=== PATIENT | female | born 1960 | race Caucasian/White ===

== ENCOUNTER 2017-07-18 08:19 | Observation (INO) | payer OTHER ==
[2017-07-18] VITALS (12 sets, daily range): BP systolic 64–155; BP diastolic 44–90; PULSE 50–112; RESP 16–20; TEMP 98.3–98.7; O2SAT 99–100
[2017-07-18] MEDS ORDERED: SYNT88TA PO (08:57)
[2017-07-18] MEDS ORDERED: ALPR.25 PO (08:57)
[2017-07-18] MEDS ORDERED: CHOL100025 CHEW (08:58)
[2017-07-18] MEDS ORDERED: CALC600T4 PO (08:58)
[2017-07-18] MEDS ORDERED: PRIL20TA2 (08:58)
[2017-07-18] MEDS ORDERED: SACC1CAP3 PO (08:58)
--- NOTE | 2017-07-18 08:59 | PD ---
HPI Chief Complaint: Continuous Pillowcase Cutter Problem/Complaint Time Seen by Provider: 08:35 Travel History International Travel<30 days: No Contact w/Intl Traveler<30days: No Traveled to known affect area: No History of Present Illness HPI Per patient she had a LEEP procedure approximately 2 weeks ago. Last week she had very light spotting that occurred. However, as of 3 in the morning today she had a larger bright red vaginal bleeding episode in which she filled 1 pad. Patient has not had any repeated episodes however she fears that if she moves about she may develop more bleeding, because that is what she has noticed in the past. Per patient she was verbally told that the LEEP was negative. Patient currently denies any lightheadedness, dizziness, shortness of breath, abdominal or pelvic pain. PCP is Dr. Carias CURRICULUM DEVELOPMENT MANAGER is Dr. Jose Armando HAMILTON Past Medical History GERD: Yes Thyroid Disease: Yes ?: Not Past Surgical History Gynecologic Surgery: Yes (leap procedure) Social History Alcohol Use: No Tobacco Use: No Substance Use: No Allergies-Medications (Allergen,Severity, Reaction): Coded Allergies: Penicillins (Verified Allergy, Severe, Hives, 07/18/17) clarithromycin (Verified Allergy, Severe, Nausea/Vomiting, 07/18/17) erythromycin base (Verified Allergy, Severe, Nausea/Vomiting, 07/18/17) Reported Meds & Prescriptions Reported Meds & Active Scripts Active Reported Prilosec (Omeprazole Magnesium) 20 Mg Tab Calcium Carbonate 1,500 Mg Tab 1,500 Mg PO DAILY 1,500 mg calcium carbonate (600 mg elemental calcium) Vitamin D3 (Cholecalciferol) 1,000 Unit Chew 1,000 Units CHEW DAILY Probiotic (Saccharomyces Boulardii) 250 Mg Cap 250 Mg PO BID Xanax (Alprazolam) 0.25 Mg Tab 0.25 Mg PO Q8H PRN Synthroid (Levothyroxine Sodium) 88 Mcg Tab 88 Mcg PO DAILY Review of Systems Except as stated in HPI: all other systems reviewed are Neg General / Constitutional: No: Fever Eyes: No: Visual changes HENT: No: Headaches Cardiovascular: No: Chest Pain or Discomfort Respiratory: No: Shortness of Breath Gastrointestinal: No: Abdominal Pain Genitourinary: Positive: Vaginal Bleeding Musculoskeletal: No: Pain Skin: No Rash Neurologic: No: Weakness Psychiatric: No: Depression Endocrine: No: Polydipsia Hematologic/Lymphatic: No: Easy Bruising Physical Exam Narrative GENERAL: SKIN: Warm and dry. HEAD: Atraumatic. Normocephalic. EYES: Pupils equal and round. No scleral icterus. No injection or drainage. ENT: No nasal bleeding or discharge. Mucous membranes pink and moist. NECK: Trachea midline. No JVD. CARDIOVASCULAR: Regular rate and rhythm. RESPIRATORY: No accessory muscle use. Clear to auscultation. Breath sounds equal bilaterally. GASTROINTESTINAL: Abdomen soft, non-tender, nondistended. MUSCULOSKELETAL: Extremities without clubbing, cyanosis, or edema. No obvious deformities. NEUROLOGICAL: Awake and alert. No obvious cranial nerve deficits. Motor grossly within normal limits. Five out of 5 muscle strength in the arms and legs. Normal speech. PSYCHIATRIC: Appropriate mood and affect; insight and judgment normal. Data Data Last Documented VS Vital Signs Date Time Temp Pulse Resp B/P (MAP) Pulse Ox O2 Delivery O2 Flow Rate FiO2 07/18/17 10:00 102 20 131/67 (88) 100 Room Air 07/18/17 08:23 98.5 Orders Orders Complete Blood Count With Diff (07/18/17 09:00) Comprehensive Metabolic Panel (07/18/17 09:00) Prothrombin Time / Inr (Pt) (07/18/17 09:00) Act Partial Throm Time (Ptt) (07/18/17 09:00) Urinalysis - C+S If Indicated (07/18/17 09:00) Ct Abd/Pel W Iv Contrast(Rout) (07/18/17 09:00) Iv Access Insert/Monitor (07/18/17 09:00) Ecg Monitoring (07/18/17 09:00) Oximetry (07/18/17 09:00) NPO (07/18/17 09:00) Sodium Chlor 0.9% 1000 Ml Inj (Ns 1000 M (07/18/17 09:00) Sodium Chloride 0.9% Flush (Ns Flush) (07/18/17 09:00) Type And Screen (07/18/17 09:00) Iohexol 350 Inj (Omnipaque 350 Inj) (07/18/17 09:57) Urine Culture (07/18/17 10:10) Admit Order (Ed Use Only) (07/18/17 11:28) Labs Laboratory Tests Test 07/18/17 09:02 07/18/17 10:10 White Blood Count 5.8 TH/MM3 Red Blood Count 4.23 MIL/MM3 Hemoglobin 13.1 GM/DL Hematocrit 38.5 % Mean Corpuscular Volume 90.9 FL Mean Corpuscular Hemoglobin 31.0 PG Mean Corpuscular Hemoglobin Concent 34.1 % Red Cell Distribution Width 12.1 % Platelet Count 181 TH/MM3 Mean Platelet Volume 7.7 FL Neutrophils (%) (Auto) 77.2 % Lymphocytes (%) (Auto) 13.3 % Monocytes (%) (Auto) 8.9 % Eosinophils (%) (Auto) 0.4 % Basophils (%) (Auto) 0.2 % Neutrophils # (Auto) 4.4 TH/MM3 Lymphocytes # (Auto) 0.8 TH/MM3 Monocytes # (Auto) 0.5 TH/MM3 Eosinophils # (Auto) 0.0 TH/MM3 Basophils # (Auto) 0.0 TH/MM3 CBC Comment DIFF FINAL Differential Comment Prothrombin Time 10.2 SEC Prothromb Time International Ratio 1.0 RATIO Activated Partial Thromboplast Time 24.7 SEC Blood Urea Nitrogen 12 MG/DL Creatinine 0.89 MG/DL Random Glucose 98 MG/DL Total Protein 7.5 GM/DL Albumin 3.9 GM/DL Calcium Level 9.5 MG/DL Alkaline Phosphatase 61 U/L Aspartate Amino Transf (AST/SGOT) 16 U/L Alanine Aminotransferase (ALT/SGPT) 23 U/L Total Bilirubin 0.5 MG/DL Sodium Level 139 MEQ/L Potassium Level 4.0 MEQ/L Chloride Level 104 MEQ/L Carbon Dioxide Level 27.7 MEQ/L Anion Gap 7 MEQ/L Estimat Glomerular Filtration Rate 65 ML/MIN Urine Collection Type CLEAN CATCH Urine Color RED Urine Turbidity HAZY Urine pH 8.5 Urine Specific Lindsay 1.020 Urine Protein 100 mg/dL Urine Glucose (UA) NEG mg/dL Urine Ketones NEG mg/dL Urine Occult Blood LARGE Urine Nitrite NEG Urine Bilirubin NEGATIVE Urine Urobilinogen LESS THAN 2.0 MG/DL Urine Leukocyte Esterase TRACE Urine RBC /hpf Urine WBC 91 /hpf Microscopic Urinalysis Comment CULTURE INDICATED Urine Collection Time 1010 MDM Medical Decision Making Medical Screen Exam Complete: Yes Emergency Medical Condition: Yes Medical Record Reviewed: Yes Differential Diagnosis Complication of a LEEP procedure versus pelvic arterial bleeding versus uterine rupture Narrative Course On [address] back from the restroom (to obtain a urinalysis )accompanied by the nurse the patient had a near syncopal episode in which she started to feel very lightheaded and became diaphoretic she was lower down to the floor patient never lost consciousness never fell down never struck herself on the floor. Then she was placed back in her gurney. Repeat vitals reveal a heart rate in the 40s, and a systolic blood pressure in the 60s-70s, patient was given IV fluid bolus, while receiving the bolus the patient stated that she felt better, and heart rate was noted to increase always stated in a sinus rhythm. CBC shows no leukocytosis, no anemia, normal platelet count, and no left shift Coagulation profile is within normal limits Electrolytes are all within normal limits, normal kidney and liver functions. Patient's blood type is A+ UA appears to have been contaminated with some vaginal blood as it shows a urine color this red hazy turbidity has large blood present, 91 urine WBCs however this is with innumerable red blood cells noted, culture is indicated and they will allow the culture to dictate treatment currently I will not start patient on antibiotics. CT abdomen and pelvis read by radiologist as uterus and cervical region are abnormal in appearance with abnormal prominence and peripheral low-density as well as a central area of high density which is of unclear significance. Pelvic ultrasound recommended Physician Communication Physician Communication [facility] recommended ROOMING HOUSE INSPECTOR hospitalist to admit...... discussed the case with CURRICULUM DEVELOPMENT MANAGER Dr. Benson, who recommended a medicine admit to workup for syncope, as she does not believe that the postmenopausal bleeding without anemia is purely causing her syncope. Diagnosis Primary Impression: Postmenopausal vaginal bleeding Additional Impression: Syncope and collapse Admitting Information Admitting Physician Requests: Observation Bharat Emery MD July 18, 2017 08:59
[2017-07-18] MEDS ORDERED: SODIUM CHLORIDE 0.9% FLUSH 10 ML FLUSH IV FLUSH PRN (09:00)
[2017-07-18] MEDS ORDERED: SODIUM CHLOR 0.9% 1000 ML INJ 1,000 ML IV SCH (09:00)
[2017-07-18 09:21] LABS: AUTOMATED NEUTROPHIL # 4.4 TH/MM3 (1.8-7.7); BASOPHIL % 0.2 % (0.0-2.0); EOSINOPHIL % 0.4 % (0.0-4.0); HEMATOCRIT 38.5 % (35.0-46.0); HEMOGLOBIN 13.1 GM/DL (11.6-15.3); LYMPH % 13.3 % (9.0-44.0); LYMPHOCYTE # 0.8 TH/MM3 (1.0-4.8); MEAN CELL VOLUME 90.9 FL (80.0-100.0); MEAN CORPUSCULAR HGB CONC 34.1 % (32.0-36.0); MEAN PLATELET VOLUME 7.7 FL (7.0-11.0); MONO % 8.9 % (0.0-8.0); MONOCYTE # 0.5 TH/MM3 (0-0.9); NEUT % 77.2 % (16.0-70.0); PLATELET COUNT 181 TH/MM3 (150-450); RED BLOOD COUNT 4.23 MIL/MM3 (4.00-5.30); RED CELL DISTRIBUTION WIDTH 12.1 % (11.6-17.2); WHITE BLOOD COUNT 5.8 TH/MM3 (4.0-11.0)
[2017-07-18 09:40] LABS: ALBUMIN 3.9 GM/DL (3.4-5.0); AST (GOT) 16 U/L (15-37); BICARBONATE 27.7 MEQ/L (21.0-32.0); BLOOD UREA NITROGEN 12 MG/DL (7-18); CALCIUM 9.5 MG/DL (8.5-10.1); CHLORIDE 104 MEQ/L (98-107); CREATININE 0.89 MG/DL (0.50-1.00); GLOMERULAR FILTRATION RATE 65 ML/MIN (>89); GLUCOSE,RANDOM 98 MG/DL (74-106); PROTHROMBIN TIME - PATIENT 10.2 SEC (9.8-11.6); SODIUM (NA) 139 MEQ/L (136-145)
[2017-07-18 09:44] LABS: ALKALINE PHOSPHATASE 61 U/L (45-117); ALT (GPT) 23 U/L (10-53); TOTAL BILIRUBIN ADULT 0.5 MG/DL (0.2-1.0); TOTAL PROTEIN 7.5 GM/DL (6.4-8.2)
[2017-07-18] MEDS ORDERED: IOHEXOL 350 MG/ML 10 ML VIAL (for RAD DIAG) IVCONTRAST ONE (09:57)
--- NOTE | 2017-07-18 10:37 | RADRPT ---
EXAM DATE: 07/18/2017 9:55 AM EDT AGE/SEX: 57 years / Female INDICATIONS: Heavy vaginal bleeding since this morning CLINICAL DATA: This is the patient's initial encounter. Patient reports that signs and symptoms have been present for 1 day and indicates a pain score of 3/10. MEDICAL/SURGICAL HISTORY: Gastroesophageal reflux disease. . LEEP ORAL CONTRAST: No oral contrast ingested. RADIATION DOSE: 6.67 CTDI (mGy) COMPARISON: No prior [facility] exams available for comparison. TECHNIQUE: Multiple contiguous axial images were obtained through the abdomen and pelvis following b olus infusion of 95 ml Omnipaque 350 (iohexol) nonionic water-soluble contrast as a single exam dos e. No oral contrast ingested. Using automated exposure control and adjustment of the mA and/or kV ac cording to patient size, the radiation dose was kept as low as reasonably achievable to obtain optima l diagnostic quality images. FINDINGS: Lower Lungs: The visualized lower lungs are clear. Liver: The liver has a homogeneous density without space-occupying lesion. There is no dilation of th e biliary tree. Spleen: Homogeneous density without enlargement. Pancreas: Unremarkable without mass or calcification. Kidneys: Normal in size and shape. No evidence of solid mass or hydronephrosis. There are bilateral simple renal cysts. Adrenal Glands: Unremarkable. Aorta: The aorta and proximal iliac vessels are grossly unremarkable without aneurysmal dilation. Bowel/Mesentery: No oral contrast was given limiting the sensitivity. The bowel loops are grossly unr emarkable. The cecum and sigmoid colon have a normal configuration. Abdominal Wall: Intact. Retroperitoneum: No evidence of adenopathy in the retrocrural, para-aortic, or deep pelvic regions. Bladder: Contours are smooth. Reproductive Organs: The risks and cervical region are abnormal in appearance. The lower uterine seg ment and vaginal region are prominent of low density on the periphery. Centrally there is a 1.5 x 0.6 cm high density structure best seen on axial images numbers 66 through 69. Inguinal: The inguinal region is unremarkable without evidence of adenopathy. Bony Structures: Unremarkable. CONCLUSION: 1. The uterus and cervical region are abnormal in appearance with abnormal prominence and peripheral low density as well as a central area of high density which is of unclear significance. Pelvic ultra sound may be helpful for further evaluation. Electronically signed by: Thuan Marcos MD 07/18/2017 10:35 AM EDT
[2017-07-18 11:03] LABS: BILIRUBIN, URINE NEGATIVE (NEG); BLOOD, URINE LARGE (NEG); GLUCOSE,URINE NEG (NEG); KETONE, URINE NEG (NEG); PH, URINE 8.5 (5.0-8.5); URINE COLOR RED (YELLW/STRAW)
[2017-07-18 11:04] LABS: NITRITE,URINE NEG (NEG); URINE LEUKOCYTE ESTERASE TRACE (NEG)
[2017-07-18] MEDS ORDERED: ACETAMINOPHEN 325 MG TAB PO PRN (12:45)
[2017-07-18] MEDS ORDERED: ALPRAZolam 0.25 MG TAB PO PRN (12:45)
[2017-07-18] MEDS ORDERED: ONDANSETRON ODT 4 MG TAB PO PRN (12:45)
--- NOTE | 2017-07-18 14:46 | HHI.HP ---
HPI Service [facility] Hospitalists Primary Care Physician Maria Isabel Carias M.D. Admission Diagnosis PRESYNCOPE, POSTMENOPAUSAL BLEEDING Chief Complaint: Lightheadedness Travel History International Travel<30 Days: No Contact w/Intl Traveler <30 Da: No Traveled to Known Affected Are: No History of Present Illness Mrs. Porter is a pleasant 57 y/o WF with anxiety, hypothyroidism, and GERD. She reports that she had a LEEP procedure performed just over [address] Escobar. She states that initially she had some slight vaginal bleeding which resolved. She was informed that the pathology from her LEEP procedure was clear. Then yesterday evening she noted slight red blood. Around 0300 this morning she woke up to use the bathroom and she passed a large amount of bright red blood. She continued to pass large clots and called her NETWORK ENGINEER ADMINISTRATOR answering service and was prompted to go to the ED for further evaluation. While in the ED she got up to give a urine sample and upon standing she felt somewhat lightheaded and this worsened as she walked to the bathroom. She had some diaphoresis. She did not lose consciousness but felt like she might faint. She was helped back to the [facility] and vital signs noted a decrease in her heart rate into the 40s and a systolic blood pressure decreased into the 60s-70s. Patient was given IV fluid bolus, while receiving the bolus the patient reports that she felt better. CBC shows no leukocytosis. Her H/H was stable, no anemia. Her platelet count was normal. Coagulation profile is within normal limits. Electrolytes are all within normal limits, normal kidney and liver functions. UA appears to have been contaminated with some vaginal blood as it shows a urine color this red hazy turbidity has large blood present, 91 urine WBCs however this is with innumerable red blood cells noted. Pt had a CT Abd/pelvis in the ED which noted the uterus and cervical region are abnormal in appearance with abnormal prominence and peripheral low density as well as a central area of high density which is of unclear significance. Pelvic ultrasound may be helpful for further evaluation. Review of Systems Constitutional: COMPLAINS OF: Diaphoretic episodes, Dizziness, DENIES: Fever, Chills Eyes: DENIES: Vision loss Ears, nose, mouth, throat: DENIES: Hearing loss Respiratory: DENIES: Cough, Shortness of breath Cardiovascular: DENIES: Chest pain, Palpitations, Lower Extremity Edema Gastrointestinal: DENIES: Abdominal pain, Diarrhea, Nausea, Vomiting Genitourinary: COMPLAINS OF: Abnormal vaginal bleeding, DENIES: Urinary frequency, Urgency, Dysuria Musculoskeletal: DENIES: Back pain, Neck pain Integumentary: DENIES: Rash Neurologic: DENIES: Headache, Paresthesias, Speech Problems, Poor Balance Psychiatric: DENIES: Confusion Past Family Social History Past Medical History Anxiety Hx of vertigo Hypothyroidism GERD No hx of HTN, CAD or MS, irregular heart rhythms, seizure disorder, COPD/Asthma , CVA/TIA Past Surgical History LEEP procedure [address] Escobar Reported Medications Prilosec 20 Mg PO DAILY Calcium Carbonate 1,500 Mg PO DAILY Vitamin D3 1,000 Units CHEW DAILY Probiotic 250 Mg PO BID Xanax 0.25 Mg PO Q8H PRN Synthroid 88 Mcg PO DAILY Allergies: Coded Allergies: Penicillins (Verified Allergy, Severe, Hives, 07/18/17) clarithromycin (Verified Allergy, Severe, Nausea/Vomiting, 07/18/17) erythromycin base (Verified Allergy, Severe, Nausea/Vomiting, 07/18/17) Family History Noncontributory Social History Occasional social alcohol use, 1-2 glasses of wine Denies any tobacco or illicit drug use Pt is typically very active and works out daily Physical Exam Vital Signs Vital Signs Date Time Temp Pulse Resp B/P (MAP) Pulse Ox O2 Delivery O2 Flow Rate FiO2 07/18/17 10:00 102 20 131/67 (88) 100 Room Air 07/18/17 09:30 90 20 122/90 (101) 100 Room Air 07/18/17 09:15 58 18 73/48 (56) 100 Room Air 07/18/17 09:10 50 20 64/44 (51) 100 Room Air 07/18/17 08:55 99 Room Air 07/18/17 08:23 98.5 112 16 155/82 (106) 100 Physical Exam GENERAL: This is a well-nourished, well-developed patient, in no apparent distress. SKIN: No rashes, ecchymoses or lesions. Cool and dry. HEENT: Atraumatic. Normocephalic. No temporal or scalp tenderness. No scleral icterus. Airway patent. NECK: Trachea midline, supple, nontender. CARDIO: Regular. RESP: CTA bilaterally. No wheezes, rales, or rhonchi. ABD: +BS, soft, non-tender, nondistended. EXT: Extremities without clubbing, cyanosis, or edema. NEURO: Awake and alert. Motor and sensory grossly within normal limits. Normal speech. Laboratory Laboratory Tests Test 07/18/17 09:02 07/18/17 10:10 White Blood Count 5.8 Red Blood Count 4.23 Hemoglobin 13.1 Hematocrit 38.5 Mean Corpuscular Volume 90.9 Mean Corpuscular Hemoglobin 31.0 Mean Corpuscular Hemoglobin Concent 34.1 Red Cell Distribution Width 12.1 Platelet Count 181 Mean Platelet Volume 7.7 Neutrophils (%) (Auto) 77.2 Lymphocytes (%) (Auto) 13.3 Monocytes (%) (Auto) 8.9 Eosinophils (%) (Auto) 0.4 Basophils (%) (Auto) 0.2 Neutrophils # (Auto) 4.4 Lymphocytes # (Auto) 0.8 Monocytes # (Auto) 0.5 Eosinophils # (Auto) 0.0 Basophils # (Auto) 0.0 CBC Comment DIFF FINAL Differential Comment Prothrombin Time 10.2 Prothromb Time International Ratio 1.0 Activated Partial Thromboplast Time 24.7 Blood Urea Nitrogen 12 Creatinine 0.89 Random Glucose 98 Total Protein 7.5 Albumin 3.9 Calcium Level 9.5 Alkaline Phosphatase 61 Aspartate Amino Transf (AST/SGOT) 16 Alanine Aminotransferase (ALT/SGPT) 23 Total Bilirubin 0.5 Sodium Level 139 Potassium Level 4.0 Chloride Level 104 Carbon Dioxide Level 27.7 Anion Gap 7 Estimat Glomerular Filtration Rate 65 Urine Collection Type CLEAN CATCH Urine Color RED Urine Turbidity HAZY Urine pH 8.5 Urine Specific Malcolm 1.020 Urine Protein 100 Urine Glucose (UA) NEG Urine Ketones NEG Urine Occult Blood LARGE Urine Nitrite NEG Urine Bilirubin NEGATIVE Urine Urobilinogen LESS THAN 2.0 Urine Leukocyte Esterase TRACE Urine RBC Urine WBC 91 Microscopic Urinalysis Comment CULTURE INDICATED Urine Collection Time 1010 Date/Time Source Procedure Growth Status 07/18/17 10:10 Urine Clean Catch Urine Culture Pending Received Result Diagram: 07/18/1790107/18/17901 Imaging Last Impressions Abdomen/Pelvis CT 07/18/17 09 Signed Impressions: CONCLUSION: 1. The uterus and cervical region are abnormal in appearance with abnormal pro minence and peripheral low density as well as a central area of high density wh ich is of unclear significance. Pelvic ultrasound may be helpful for further ev aluation. Caprini VTE Risk Assessment Caprini VTE Risk Assessment: No/Low Risk (score <= 1) Caprini Risk Assessment Model Point Value = 1 Point Value = 2 Point Value = 3 Point Value = 5 Age 41-60 Minor surgery BMI > 25 kg/m2 Swollen legs Varicose veins or History of unexplained or recurrent spontaneous Oral contraceptives or hormone replacement Sepsis (< 1 month) Serious lung disease, including pneumonia (< 1 month) Abnormal pulmonary function Acute myocardial infarction Congestive heart failure (< 1 month) History of inflammatory bowel disease Medical patient at bed rest Age 61-74 Arthroscopic surgery Major open surgery (> 45 min) Laparoscopic surgery (> 45 min) Malignancy Confined to bed (> 72 hours) Immobilizing plaster cast Central venous access Age >= 75 History of VTE Family history of VTE Factor V Leiden Prothrombin [id number] Lupus anticoagulant Anticardiolipin antibodies Elevated serum homocysteine Heparin-induced thrombocytopenia Other congenital or acquired thrombophilia Stroke (< 1 month) Elective arthroplasty Hip, pelvis, or leg fracture Acute spinal cord injury (< 1 month) Prophylaxis Regimen Total Risk Factor Score Risk Level Prophylaxis Regimen 0-1 Low Early ambulation 2 Moderate Order ONE of the following: *Sequential Compression Device (SCD) *Heparin 5000 units SQ BID 3-4 Higher Order ONE of the following medications: *Heparin 5000 units SQ TID *Enoxaparin/Lovenox 40 mg SQ daily (WT < 150 kg, CrCl > 30 mL/min) *Enoxaparin/Lovenox 30 mg SQ daily (WT < 150 kg, CrCl > 10-29 mL/min) *Enoxaparin/Lovenox 30 mg SQ BID (WT < 150 kg, CrCl > 30 mL/min) AND/OR *Sequential Compression Device (SCD) 5 or more Highest Order ONE of the following medications: *Heparin 5000 units SQ TID (Preferred with Epidurals) *Enoxaparin/Lovenox 40 mg SQ daily (WT < 150 kg, CrCl > 30 mL/min) *Enoxaparin/Lovenox 30 mg SQ daily (WT < 150 kg, CrCl > 10-29 mL/min) *Enoxaparin/Lovenox 30 mg SQ BID (WT < 150 kg, CrCl > 30 mL/min) AND *Sequential Compression Device (SCD) Assessment and Plan Problem List: (1) Pre-syncope ICD Codes: R55 - Syncope and collapse Status: Acute Plan: - Pt is a 57 y/o WF with anxiety, hypothyroidism, and GERD. She reports that she had a LEEP procedure performed just over [address] Escobar. - She presented to the ED on 07/18/17 with complaints of vaginal bleeding. Around 0300 this morning she woke up to use the bathroom and she passed a large amount of bright red blood. She continued to pass large clots and called her NETWORK ENGINEER ADMINISTRATOR answering service and was prompted to go to the ED for further evaluation. - While in the ED she got up to give a urine sample and upon standing she felt somewhat lightheaded and this worsened as she walked to the bathroom. She had some diaphoresis. She did not lose consciousness but felt like she might faint. She was helped back to the [facility] and vital signs noted a decrease in her heart rate into the 40s and a systolic blood pressure decreased into the 60s-70s. - Patient was given IV fluid bolus. Patient reports that she felt better after the IVF. Her HR and BP have remained stable. - CBC shows no leukocytosis. Her H/H was stable, no anemia. Her platelet count was normal. Coagulation profile is within normal limits. Electrolytes are all within normal limits. - UA appears to have been contaminated with some vaginal blood as it shows a urine color this red hazy turbidity has large blood present, 91 urine WBCs however this is with innumerable red blood cells noted. - We will order an EKG - Keep pt on telemetry - Check 2D echo - Check orthostatic vital signs - This episode may have been a vasovagal response and she reports that in the past she has had similar episodes and even completely syncopized when she has been increasingly anxious. - Pt evaluation in AM - Encourage oral intake - Recheck labs in AM - Pt above workup is negative anticipate d/c home tomorrow (2) Vaginal bleeding ICD Codes: N93.9 - Abnormal uterine and vaginal bleeding, unspecified Status: Acute Plan: - Pt had a LEEP procedure with Dr. Escobar around 2 weeks ago - Her vaginal bleeding was minimal after the procedure then yesterday evening and early this morning she had significant increase in bright red vaginal bleeding with clots present - Since admission in the ED the bleeding has reportedly decreased/minimized - CT Abd/pelvis (07/18/17) --> uterus and cervical region are abnormal in appearance with abnormal prominence and peripheral low density as well as a central area of high density which is of unclear significance. - Consult NETWORK ENGINEER ADMINISTRATOR, Dr. Escobar, for further review and recommendations (3) Hypothyroidism ICD Codes: E03.9 - Hypothyroidism, unspecified Status: Chronic Plan: - Cont. home meds (4) GERD (gastroesophageal reflux disease) ICD Codes: K21.9 - Gastro-esophageal reflux disease without esophagitis Status: Chronic Plan: - PPI (5) Anxiety ICD Codes: F41.9 - Anxiety disorder, unspecified Status: Chronic Plan: - Cont. home meds Assessment and Plan Patient examined. Assessment and plan formulated with Rachel Russell PA-C. I agree with the above. Leep 2 weeks ago. presents with bright red bleeding vaginally. Upon walking to bathroom became lightheaded/diaphoretic and had near syncope. noted to be bradycardic and hypotensive. Now back to normal. given IVF. probably vasovagal event. pt gives hx of similar events. she has anxiety d/o and took this morning. will monitor her hgb for delayed drop after acute bleed. ask Chief Of Planning to see her for vaginal bleeding. telemetry overnight to eval for arrhythmia. 2d echo. PT eval in AM. probably d/c home tomorrow from medical standpt. Rachel Russell July 18, 2017 14:46 Hunter De León MD July 18, 2017 16:36
--- NOTE | 2017-07-18 18:27 | PD.CONS ---
History of Present Illness Service gynecology Consult Requested By Reason for Consult post menopausal bleeding 2 weeks after cone biopy Primary Care Physician Maria Isabel Carias M.D. Diagnoses: History of Present Illness 57 yo mwf P2 here with daughter I delivered. Patient of Dr. Escobar. Had cone biopsy in office ~ 2 weeks ago. Began bleeding heavily last night after several days of wheel truing machine tender bleeding and came to ED. Initial Hgb stble but had syncopal episode and medical evaluation initiated. Currently not bleeding. Eating and in no pain. CT suggests possible intrauterine pathology and recommends ultrasound. Will obtain along with repeat CBC and if stable can be discharged and return to my office tomorrow for an endometrial biopsy. Past Family Social History Allergies: Coded Allergies: Penicillins (Verified Allergy, Severe, Hives, 07/18/17) clarithromycin (Verified Allergy, Severe, Nausea/Vomiting, 07/18/17) erythromycin base (Verified Allergy, Severe, Nausea/Vomiting, 07/18/17) Physical Exam Vital Signs Vital Signs Date Time Temp Pulse Resp B/P (MAP) Pulse Ox O2 Delivery O2 Flow Rate FiO2 07/18/17 15:55 98.7 74 18 113/78 (90) 100 07/18/17 15:00 82 18 140/82 (101) 100 Room Air 07/18/17 10:00 102 20 131/67 (88) 100 Room Air 07/18/17 09:30 90 20 122/90 (101) 100 Room Air 07/18/17 09:15 58 18 73/48 (56) 100 Room Air 07/18/17 09:10 50 20 64/44 (51) 100 Room Air 07/18/17 08:55 99 Room Air 07/18/17 08:23 98.5 112 16 155/82 (106) 100 Physical Exam GENERAL: This is a well-nourished, well-developed patient, in no apparent distress. SKIN: No rashes, ecchymoses or lesions. Cool and dry. HEAD: Atraumatic. Normocephalic. No temporal or scalp tenderness. EYES: Pupils equal round and reactive. Extraocular motions intact. No scleral icterus. No injection or drainage. ENT: Nose without bleeding, purulent drainage or septal hematoma. Throat without erythema, tonsillar hypertrophy or exudate. Uvula midline. Airway patent. NECK: Trachea midline. No JVD or lymphadenopathy. Supple, nontender, no meningeal signs. CARDIOVASCULAR: Regular rate and rhythm without murmurs, gallops, or rubs. RESPIRATORY: Clear to auscultation. Breath sounds equal bilaterally. No wheezes , rales, or rhonchi. GASTROINTESTINAL: Abdomen soft, non-tender, nondistended. No hepato-splenomegaly , or palpable masses. No guarding. MUSCULOSKELETAL: Extremities without clubbing, cyanosis, or edema. No joint tenderness, effusion, or edema noted. No calf tenderness. Negative Homans sign bilaterally. NEUROLOGICAL: Awake and alert. Cranial nerves II through XII intact. Motor and sensory grossly within normal limits. Five out of 5 muscle strength in all muscle groups. Normal speech. Laboratory Laboratory Tests Test 07/18/17 09:02 07/18/17 10:10 White Blood Count 5.8 Red Blood Count 4.23 Hemoglobin 13.1 Hematocrit 38.5 Mean Corpuscular Volume 90.9 Mean Corpuscular Hemoglobin 31.0 Mean Corpuscular Hemoglobin Concent 34.1 Red Cell Distribution Width 12.1 Platelet Count 181 Mean Platelet Volume 7.7 Neutrophils (%) (Auto) 77.2 Lymphocytes (%) (Auto) 13.3 Monocytes (%) (Auto) 8.9 Eosinophils (%) (Auto) 0.4 Basophils (%) (Auto) 0.2 Neutrophils # (Auto) 4.4 Lymphocytes # (Auto) 0.8 Monocytes # (Auto) 0.5 Eosinophils # (Auto) 0.0 Basophils # (Auto) 0.0 CBC Comment DIFF FINAL Differential Comment Prothrombin Time 10.2 Prothromb Time International Ratio 1.0 Activated Partial Thromboplast Time 24.7 Blood Urea Nitrogen 12 Creatinine 0.89 Random Glucose 98 Total Protein 7.5 Albumin 3.9 Calcium Level 9.5 Alkaline Phosphatase 61 Aspartate Amino Transf (AST/SGOT) 16 Alanine Aminotransferase (ALT/SGPT) 23 Total Bilirubin 0.5 Sodium Level 139 Potassium Level 4.0 Chloride Level 104 Carbon Dioxide Level 27.7 Anion Gap 7 Estimat Glomerular Filtration Rate 65 Urine Collection Type CLEAN CATCH Urine Color RED Urine Turbidity HAZY Urine pH 8.5 Urine Specific [place] 1.020 Urine Protein 100 Urine Glucose (UA) NEG Urine Ketones NEG Urine Occult Blood LARGE Urine Nitrite NEG Urine Bilirubin NEGATIVE Urine Urobilinogen LESS THAN 2.0 Urine Leukocyte Esterase TRACE Urine RBC Urine WBC 91 Microscopic Urinalysis Comment CULTURE INDICATED Urine Collection Time 1010 Date/Time Source Procedure Growth Status 07/18/17 10:10 Urine Clean Catch Urine Culture Pending Received Result Diagram: 07/18/17 0902 07/18/17 0902 Anahi Smith MD July 18, 2017 18:27
--- NOTE | 2017-07-18 20:52 | RADRPT ---
EXAM DATE: 07/18/2017 8:43 PM EDT AGE/SEX: 57 years / Female INDICATIONS: Post menopausal bleeding. CLINICAL DATA: This is the patient's initial encounter. Patient reports that signs and symptoms have been present for 1 day and indicates a pain score of 0/10. MEDICAL/SURGICAL HISTORY: . Hypothyroidism. GERD. Anxiety. . LEEP procedure 2 weeks ago. COMPARISON: No prior [facility] exams available for comparison. No external comparison. MEASUREMENTS: Uterus:__5.8 x 3.6 x 4.0 Endometrial Stripe:__4 mm Right Ovary:__ 2.0 x 1.1 x 1.2 Left Ovary:__ 1.8 x 1.1 x 1.4 FINDINGS: Uterus: The myometrium has homogeneous echotexture without mass. Endometrial stripe is homogeneous and within normal limits. There is however very trace endometrial fluid. Right Ovary: Ovary contains no mass or significant cystic lesion. Blood flow is documented. Left Ovary: Ovary contains no mass or significant cystic lesion. Blood flow is documented. Other: No free fluid. CONCLUSION: 1. Homogeneous normal thickness endometrial stripe. However, there is very trace endometrial fluid. Electronically signed by: Adrien Alba MD 07/18/2017 8:50 PM EDT
[2017-07-18 21:37] LABS: AUTOMATED NEUTROPHIL # 5.3 TH/MM3 (1.8-7.7); BASOPHIL % 0.1 % (0.0-2.0); EOSINOPHIL % 0.4 % (0.0-4.0); LYMPH % 9.9 % (9.0-44.0); LYMPHOCYTE # 0.7 TH/MM3 (1.0-4.8); MEAN CELL VOLUME 90.8 FL (80.0-100.0); MEAN CORPUSCULAR HEMOGLOBIN 31.1 PG (27.0-34.0); MEAN CORPUSCULAR HGB CONC 34.3 % (32.0-36.0); MEAN PLATELET VOLUME 7.8 FL (7.0-11.0); MONO % 11.9 % (0.0-8.0); MONOCYTE # 0.8 TH/MM3 (0-0.9); NEUT % 77.7 % (16.0-70.0); PLATELET COUNT 200 TH/MM3 (150-450); RED BLOOD COUNT 3.85 MIL/MM3 (4.00-5.30); RED CELL DISTRIBUTION WIDTH 12.4 % (11.6-17.2); WHITE BLOOD COUNT 6.9 TH/MM3 (4.0-11.0)
[2017-07-19 03:29] VITALS: BP 108/70; PULSE 77; RESP 16; TEMP 98; O2SAT 97
[2017-07-19 05:16] LABS: AUTOMATED NEUTROPHIL # 3.5 TH/MM3 (1.8-7.7); BASOPHIL % 0.3 % (0.0-2.0); EOSINOPHIL # 0.1 TH/MM3 (0-0.4); EOSINOPHIL % 1.1 % (0.0-4.0); HEMATOCRIT 35.7 % (35.0-46.0); HEMOGLOBIN 12.2 GM/DL (11.6-15.3); LYMPH % 18.1 % (9.0-44.0); LYMPHOCYTE # 0.9 TH/MM3 (1.0-4.8); MEAN CELL VOLUME 91.5 FL (80.0-100.0); MEAN CORPUSCULAR HEMOGLOBIN 31.2 PG (27.0-34.0); MEAN CORPUSCULAR HGB CONC 34.1 % (32.0-36.0); MEAN PLATELET VOLUME 7.6 FL (7.0-11.0); MONO % 11.3 % (0.0-8.0); MONOCYTE # 0.6 TH/MM3 (0-0.9); NEUT % 69.2 % (16.0-70.0); PLATELET COUNT 176 TH/MM3 (150-450); RED BLOOD COUNT 3.91 MIL/MM3 (4.00-5.30); RED CELL DISTRIBUTION WIDTH 12.5 % (11.6-17.2); WHITE BLOOD COUNT 5.1 TH/MM3 (4.0-11.0)
[2017-07-19 05:46] LABS: BICARBONATE 29.5 MEQ/L (21.0-32.0); CALCIUM 8.7 MG/DL (8.5-10.1); CREATININE 0.96 MG/DL (0.50-1.00); MAGNESIUM 2.1 MG/DL (1.5-2.5)
[2017-07-19] MEDS ORDERED: LEVOTHYROXINE SODIUM 88 MCG TAB PO SCH (06:00)
[2017-07-19 08:26] VITALS: BP 112/71; PULSE 88; RESP 18; TEMP 99.6; O2SAT 99
[2017-07-19] MEDS ORDERED: PANTOPRAZOLE SOD 20 MG DELAYED RELEASE TAB PO SCH (09:00)
--- NOTE | 2017-07-19 10:33 | HHI.PR ---
Subjective Remarks Pt has had some minimal vaginal bleeding overnight She has not had any more lightheadedness. She has been ambulating to the bathroom without difficulty Pt planned for 2D echo this morning. Objective Vitals Vital Signs Date Time Temp Pulse Resp B/P (MAP) Pulse Ox O2 Delivery O2 Flow Rate FiO2 07/19/17 08:26 99.6 88 18 112/71 (85) 99 07/19/17 03:29 98.0 77 16 108/70 (83) 97 07/18/17 23:49 98.3 73 16 110/70 (83) 99 07/18/17 23:00 82 07/18/17 20:25 98.4 82 16 112/67 (82) 99 07/18/17 18:27 87 07/18/17 15:55 98.7 74 18 113/78 (90) 100 07/18/17 15:00 82 18 140/82 (101) 100 Room Air Result Diagram: 07/19/17 0450 07/19/17 0450 Other Results Laboratory Tests Test 07/18/17 09:02 07/18/17 10:10 07/18/17 20:39 07/19/17 04:50 White Blood Count 5.8 TH/MM3 6.9 TH/MM3 5.1 TH/MM3 Red Blood Count 4.23 MIL/MM3 3.85 MIL/MM3 3.91 MIL/MM3 Hemoglobin 13.1 GM/DL 12.0 GM/DL 12.2 GM/DL Hematocrit 38.5 % 35.0 % 35.7 % Mean Corpuscular Volume 90.9 FL 90.8 FL 91.5 FL Mean Corpuscular Hemoglobin 31.0 PG 31.1 PG 31.2 PG Mean Corpuscular Hemoglobin Concent 34.1 % 34.3 % 34.1 % Red Cell Distribution Width 12.1 % 12.4 % 12.5 % Platelet Count 181 TH/MM3 200 TH/MM3 176 TH/MM3 Mean Platelet Volume 7.7 FL 7.8 FL 7.6 FL Neutrophils (%) (Auto) 77.2 % 77.7 % 69.2 % Lymphocytes (%) (Auto) 13.3 % 9.9 % 18.1 % Monocytes (%) (Auto) 8.9 % 11.9 % 11.3 % Eosinophils (%) (Auto) 0.4 % 0.4 % 1.1 % Basophils (%) (Auto) 0.2 % 0.1 % 0.3 % Neutrophils # (Auto) 4.4 TH/MM3 5.3 TH/MM3 3.5 TH/MM3 Lymphocytes # (Auto) 0.8 TH/MM3 0.7 TH/MM3 0.9 TH/MM3 Monocytes # (Auto) 0.5 TH/MM3 0.8 TH/MM3 0.6 TH/MM3 Eosinophils # (Auto) 0.0 TH/MM3 0.0 TH/MM3 0.1 TH/MM3 Basophils # (Auto) 0.0 TH/MM3 0.0 TH/MM3 0.0 TH/MM3 CBC Comment DIFF FINAL DIFF FINAL DIFF FINAL Differential Comment Prothrombin Time 10.2 SEC Prothromb Time International Ratio 1.0 RATIO Activated Partial Thromboplast Time 24.7 SEC Blood Urea Nitrogen 12 MG/DL 11 MG/DL Creatinine 0.89 MG/DL 0.96 MG/DL Random Glucose 98 MG/DL 114 MG/DL Total Protein 7.5 GM/DL Albumin 3.9 GM/DL Calcium Level 9.5 MG/DL 8.7 MG/DL Alkaline Phosphatase 61 U/L Aspartate Amino Transf (AST/SGOT) 16 U/L Alanine Aminotransferase (ALT/SGPT) 23 U/L Total Bilirubin 0.5 MG/DL Sodium Level 139 MEQ/L 138 MEQ/L Potassium Level 4.0 MEQ/L 3.5 MEQ/L Chloride Level 104 MEQ/L 100 MEQ/L Carbon Dioxide Level 27.7 MEQ/L 29.5 MEQ/L Anion Gap 7 MEQ/L 9 MEQ/L Estimat Glomerular Filtration Rate 65 ML/MIN 59 ML/MIN Urine Collection Type CLEAN CATCH Urine Color RED Urine Turbidity HAZY Urine pH 8.5 Urine Specific [place] 1.020 Urine Protein 100 mg/dL Urine Glucose (UA) NEG mg/dL Urine Ketones NEG mg/dL Urine Occult Blood LARGE Urine Nitrite NEG Urine Bilirubin NEGATIVE Urine Urobilinogen LESS THAN 2.0 MG/DL Urine Leukocyte Esterase TRACE Urine RBC /hpf Urine WBC 91 /hpf Microscopic Urinalysis Comment CULTURE INDICATED Urine Collection Time 1010 CA 125 Antigen 8.2 U/ML Magnesium Level 2.1 MG/DL Imaging Last Impressions Abdomen/Pelvis CT 07/18/17 0900 Signed Impressions: CONCLUSION: 1. The uterus and cervical region are abnormal in appearance with abnormal pro minence and peripheral low density as well as a central area of high density wh ich is of unclear significance. Pelvic ultrasound may be helpful for further ev aluation. Abdomen/Pelvis/Transvag US 07/18/17 0000 Signed Impressions: CONCLUSION: 1. Homogeneous normal thickness endometrial stripe. However, there is very tra ce endometrial fluid. Objective Remarks General: NAD, AAOx3 Chest: CTA Cardiac: regular Abd: +BS, soft ND/NT Ext: No edema A/P Problem List: (1) Pre-syncope ICD Codes: R55 - Syncope and collapse Status: Acute Plan: - Pt is a 57 y/o WF with anxiety, hypothyroidism, and GERD. She reports that she had a LEEP procedure performed just over [address] Escobar. - She presented to the ED on 07/18/17 with complaints of vaginal bleeding. Around 0300 this morning she woke up to use the bathroom and she passed a large amount of bright red blood. She continued to pass large clots and called her NUCLEAR CARDIOLOGY TECHNOLOGIST answering service and was prompted to go to the ED for further evaluation. - While in the ED she got up to give a urine sample and upon standing she felt somewhat lightheaded and this worsened as she walked to the bathroom. She had some diaphoresis. She did not lose consciousness but felt like she might faint. She was helped back to the [facility] and vital signs noted a decrease in her heart rate into the 40s and a systolic blood pressure decreased into the 60s-70s. - Patient was given IV fluid bolus. Patient reports that she felt better after the IVF. Her HR and BP have remained stable. - CBC shows no leukocytosis. Her H/H was stable, no anemia. Her platelet count was normal. Coagulation profile is within normal limits. Electrolytes are all within normal limits. - UA appears to have been contaminated with some vaginal blood as it shows a urine color this red hazy turbidity has large blood present, 91 urine WBCs however this is with innumerable red blood cells noted. - Will review EKG when pt returns from Echo lab - Telemetry with NSR - Check 2D echo is pending. - Check orthostatic vital signs - This episode may have been a vasovagal response and she reports that in the past she has had similar episodes and even completely syncopized when she has been increasingly anxious. - PT evaluation this AM - Encourage oral intake - Labs are stable this morning - If above workup is negative anticipate d/c home later today (2) Vaginal bleeding ICD Codes: N93.9 - Abnormal uterine and vaginal bleeding, unspecified Status: Acute Plan: - Pt had a LEEP procedure with Dr. Escboar around 2 weeks ago - Her vaginal bleeding was minimal after the procedure then yesterday evening and early this morning she had significant increase in bright red vaginal bleeding with clots present - Since admission in the ED the bleeding has reportedly decreased/minimized - CT Abd/pelvis (07/18/17) --> uterus and cervical region are abnormal in appearance with abnormal prominence and peripheral low density as well as a central area of high density which is of unclear significance. - Appreciate Consult from NUCLEAR CARDIOLOGY TECHNOLOGIST, Dr. Smith - Transvaginal US (07/18/17) --> Homogeneous normal thickness endometrial stripe. However, there is very trace endometrial fluid - Pt is planned to followup outpt with Dr. Smith tomorrow for possible endometrial biopsy (3) Hypothyroidism ICD Codes: E03.9 - Hypothyroidism, unspecified Status: Chronic Plan: - Cont. home meds (4) GERD (gastroesophageal reflux disease) ICD Codes: K21.9 - Gastro-esophageal reflux disease without esophagitis Status: Chronic Plan: - PPI (5) Anxiety ICD Codes: F41.9 - Anxiety disorder, unspecified Status: Chronic Plan: - Cont. home meds Assessment and Plan Patient examined. Assessment and plan formulated with Rachel Russell PA-C. I agree with the above. near syncope felt to be vasovagal. no evidence of arrhythmia overnight. hgb stable. echo nml LVF. pt will go and f/u gynecology tomorrow. no current bleeding. Rachel Russell July 19, 2017 10:33 Hunter De León MD July 19, 2017 16:09
--- NOTE | 2017-07-19 10:34 | HHI.DCPOC ---
Discharge Care Plan Diagnosis: (1) Pre-syncope (2) Vaginal bleeding (3) GERD (gastroesophageal reflux disease) (4) Hypothyroidism (5) Anxiety Goals to Promote Your Health * To prevent worsening of your condition and complications * To maintain your health at the optimal level Directions to Meet Your Goals Take your medications as prescribed Follow your dietary instruction Follow activity as directed Keep your appointments as scheduled Take your immunizations and boosters as scheduled If your symptoms worsen call your PCP, if no PCP go to Urgent Care Center or Emergency Room Smoking is Dangerous to Your Health. Avoid second hand smoke Call the 24-hour hour crisis hotline for domestic abuse at Rachel Russell July 19, 2017 10:34
[2017-07-19 11:35] VITALS: BP_SYST 113; BP_SYST 121; BP_SYST 122; BP_DIAS 67; BP_DIAS 68; BP_DIAS 75; PULSE 97; RESP 18; TEMP 98.7; O2SAT 100
--- NOTE | 2017-07-19 11:59 | ECHRPT ---
Indication: NEAR SYNCOPE CONCLUSIONS Normal left ventricular size. Wall thickness is normal. The left ventricular systolic function is normal with an estimated ejection fraction in the range of 55-60%. Trace mitral valve regurgitation. There is trace tricuspid valve regurgitation. The estimated pulmonary arterial pressure is 29.9 mmHg. A prominent epicardial fat pad is present. BP: 112 / 71 HR: Rhythm: Sinus MEASUREMENTS (Male / Female) Normal Values Technical Quality:Very technically difficult study 2D ECHO LV Diastolic Diameter PLAX 3.3 cm 4.2 - 5.9 / 3.9 - 5.3 cm LV Systolic Diameter PLAX 2.4 cm IVS Diastolic Thickness 0.8 cm 0.6 - 1.0 / 0.6 - 0.9 cm LVPW Diastolic Thickness 0.8 cm 0.6 - 1.0 / 0.6 - 0.9 cm LV Relative Wall Thickness 0.5 RV Internal Dim ED PLAX 2.1 cm LVOT Diameter 1.9 cm Aortic Root Diameter 2.7 cm LA Systolic Diameter LX 2.4 cm 3.0 - 4.0 / 2.7 - 3.8 cm M-MODE AV Cusp Separation MM 1.7 cm DOPPLER AV Peak Velocity 81.3 cm/s AV Peak Gradient 2.6 mmHg AV Mean Gradient 1.0 mmHg AV Velocity Time Integral 12.8 cm LVOT Peak Velocity 73.7 cm/s LVOT Peak Gradient 2.2 mmHg LVOT Velocity Time Integral 11.9 cm AV Area Cont Eq vti 2.6 cm AV Area Cont Eq pk 2.6 cm Mitral E Point Velocity 38.5 cm/s Mitral A Point Velocity 46.9 cm/s Mitral E to A Ratio 0.8 LV E' Lateral Velocity 14.4 cm/s Mitral E to LV E' Lateral Ratio 2.7 LV E' Septal Velocity 9.8 cm/s Mitral E to LV E' Septal Ratio 3.9 TR Peak Velocity 223.0 cm/s TR Peak Gradient 19.9 mmHg Right Atrial Pressure 10.0 mmHg Pulmonary Artery Systolic Pressu 29.9 mmHg Right Ventricular Systolic Press 29.9 mmHg PV Peak Velocity 76.7 cm/s PV Peak Gradient 2.4 mmHg FINDINGS LEFT VENTRICLE Normal left ventricular size. Wall thickness is normal. The left ventricular systolic function is normal with an estimated ejection fraction in the range of 55-60%. RIGHT VENTRICLE Normal right ventricular size and systolic function. LEFT ATRIUM The left atrial size is normal. RIGHT ATRIUM The right atrial size is normal. ATRIAL SEPTUM No atrial level shunt is demonstrated by color flow Doppler interrogation. AORTA The aortic root and proximal ascending aorta are normal in size on limited imaging. MITRAL VALVE Trace mitral valve regurgitation. AORTIC VALVE Trileaflet aortic valve. No aortic valve stenosis or regurgitation. TRICUSPID VALVE There is trace tricuspid valve regurgitation. The estimated pulmonary arterial pressure is 29.9 mmHg. PULMONARY VALVE No pulmonary valve regurgitation or stenosis. VESSELS The inferior vena cava is normal in size. PERICARDIUM A prominent epicardial fat pad is present. No pericardial effusion. Nakul Sheridan MD, FACC (Electronically Signed) Final Date:19 Jul 2017 11:58
[2017-07-19] MEDS ORDERED: ZOFR4TAB3 SL (14:31)
== END 2017-07-19 18:31 | disposition home or self-care (01) ==
LOC: NEPE 08:19 → NEDA 11:31 → NEPFCDU 15:27
PROVIDERS: ADMIT Hospitalist; ATTEND Hospitalist
DX: N93.9 Abnormal uterine and vaginal bleeding, unspecified (principal); K21.9 Gastro-esophageal reflux disease without esophagitis; E07.9 Disorder of thyroid, unspecified; Z79.899 Other long term (current) drug therapy; R55 Syncope and collapse; R61 Generalized hyperhidrosis; F41.9 Anxiety disorder, unspecified; E03.9 Hypothyroidism, unspecified; B96.89 Other specified bacterial agents as the cause of diseases classified elsewhere; N28.1 Cyst of kidney, acquired; R53.81 Other malaise
CPT/HCPCS: 74177; 76830; 76856; 80048; 80053; 81001; 83735; 85025; 85610; 85730; 86304; 86850; 86900; 86901; 87086; 93306; 93975; 97161; 99285; G0378; G8987; G8988; G8989; J7030; Q9967